=== PATIENT | female | born 1955 | race Caucasian/White ===

== ENCOUNTER 2019-09-08 12:57 | Emergency (ER) | payer OTHER, MEDICARE ==
[~2019-09-08] VITALS: Ht 160 cm; Wt 105.5 kg
[~2019-09-08 12:57] MED LIST: AMBIEN 5 MG TABL5 M1 PO; DESYREL50 MG PO; PHENTERMINE HCL15 MG; PROVENTIL
[2019-09-08 13:16] LABS: ABSOLUTE BASOPHILS 0.1 thou/uL (0.0-0.2); ABSOLUTE EOSINOPHILS 0.3 thou/uL (0.0-0.7); ABSOLUTE LYMPHOCYTES 2.2 thou/uL (0.8-5.3); ABSOLUTE NEUTROPHILS 4.3 thou/uL (1.6-8.1); BASOPHILS 1.1 %; EOSINOPHILS 4.2 %; HEMATOCRIT 36.1 % (37.0-47.0); HEMOGLOBIN 12.1 gm/dL (12.0-15.0); LYMPHOCYTES 27.4 %; MCHC 33.4 g/dL (28.0-37.0); MCV 86.9 fL (80.0-100.0); MONOCYTES 12.9 %; MPV 8.4 fl. (7.2-11.1); NUCLEATED RBCS 0 /100WBC; PLATELET COUNT* 311 thou/uL (150-400); POLYS 54.4 %; RBC 4.16 mil/uL (4.20-5.00); RDW-CV 14.4 % (10.5-14.5); WBC 7.9 thou/uL (4.0-11.0)
[2019-09-08] MEDS ORDERED: COZAAR 25 MG TA25 M1 PO (13:22)
[2019-09-08 13:25] LABS: CALCIUM 8.9 mg/dL (8.5-10.1); CREATININE 0.9 mg/dL (0.6-1.3); POTASSIUM 3.8 mmol/L (3.5-5.1)
[2019-09-08 13:27] LABS: APTT 27.7 Seconds (25.0-31.3)
[2019-09-08 13:39] LABS: CK-MB MASS 0.5 ng/mL (<0.5-3.6); MAGNESIUM 2.1 mg/dL (1.8-2.4); TOTAL BILIRUBIN 0.2 mg/dL (<0.1-1.0); TOTAL PROTEIN 7.4 g/dL (6.4-8.2)
[2019-09-08 15:56] VITALS: BP 159/86
--- NOTE | 2019-09-08 17:03 | EKG ---
[place] [address] ELECTROCARDIOGRAM REPORT Name: TERRENCE BANEGAS Room: [facility]#: [id number] Admission: 09/08/19 Attend Phys: Discharge: 09/08/19 Date of : 53 Report #: [id number] THIS REPORT FOR: //name// [facility] ED Test Date: 2019-09-08 Test Time: 13:03:40 Pat Name: TERRENCE BANEGAS Department: Room: Gender: F Infant Caregiver: PARISH : 1955 Requested By: Gucci Castillo Order Number: [id number] MD: Fernando Valera Measurements Intervals [place] Rate: 62 P: -4 LA: 168 QRS: 7 QRSD: 88 T: 30 QT: 400 QTc: 407 Interpretive Statements Sinus rhythm low voltage Anteroseptal infarct, age indeterminate Compared to ECG 01/20/2012 20:52:02 No significant changes Electronically Signed On 09-08-2019 17:03:19 CDT by Fernando Valera [email or web address] <ELECTRONICALLY SIGNED> By: Fernando Valera MD, [facility] 09/08/19 1703 130 130 Fernando Valera MD, FACC /EPI
== END 2019-09-08 15:56 | disposition home or self-care (01) ==
LOC: M.ERS 12:57
PROVIDERS: Family Medicine
DX: R07.9 Chest pain, unspecified (principal); Z88.7 Allergy status to serum and vaccine